=== PATIENT | female | born 1965 | race Caucasian/White ===

== ENCOUNTER 2025-03-21 07:49 | Outpatient (CLI) | payer OTHER, SELFPAY ==
--- NOTE | ~2025-03-21 | CT_ITS ---
EXAMINATION: CT abdomen pelvis wo/w con DATE: 03/21/2025 08:27 INDICATION: Gross hematuria TECHNIQUE: Computed tomography (CT) of the abdomen and pelvis was performed with 100 mL Omnipaque-350 intravenous contrast. Automated exposure control and iterative reconstruction technique were employed. The dose-length product was 2382.58 mGy-cm. COMPARISON: None FINDINGS: Lung bases are clear. Heart size is normal. No pericardial or pleural effusion. Cholecystectomy clips at the gallbladder fossa. Liver, spleen, pancreas, bilateral adrenal glands are normal. Normal symmetric renal parenchymal enhancement. There are few nonenhancing parapelvic cysts at the left renal hilum and at the lower pole of the right kidney. No urolithiasis or hydronephrosis. Ureters are opacified in their near entirety with no urothelial irregularities at the bilateral renal collecting systems and ureters. Bladder is normal with bilateral contrast opacified ureteral jets. The uterus is not identified and has likely been surgically resected. Bowels are normal with no obstruction or abnormal wall thickening. The appendix is not visualized. No pericecal inflammatory change to suggest acute appendicitis. No free intraperitoneal gas or fluid. No pathologically enlarged abdominal or pelvic lymphadenopathy. Moderate to severe lower lumbar spondylosis. IMPRESSION: 1. Bilateral parapelvic cysts. Kidneys, ureters and bladder are otherwise unremarkable with no urolithiasis, lesions suspicious for neoplasm or other etiology for reported gross hematuria. Reviewed, dictated and finalized at location A. IMPRESSION: 1. Bilateral parapelvic cysts. Kidneys, ureters and bladder are otherwise unrem arkable with no urolithiasis, lesions suspicious for neoplasm or other etiology for reported gross hematuria.
[2025-03-21 08:11] LABS: Estimated Glomerular Filt Rate > 60
== END 2025-03-21 07:50 | disposition home or self-care (01) ==
PROVIDERS: PCP Physician Assistant; Visit Provider Physician Assistant
DX: R31.0 Gross hematuria (principal)
CPT/HCPCS: 74178; Q9967